=== PATIENT | male | born 1995 | race Caucasian/White ===

== ENCOUNTER 2017-12-07 14:19 | Observation (INO) | payer OTHER ==
[~2017-12-07 14:19] MED LIST: Dexamethasone 20 MG/5 ML VIAL ONE; Glycopyrrolate 0.2 MG/ML 5 ML SYRINGE ONE; ISOVUE-370 76%-LOCM 1 ML ONE; Ketorolac Tromethamine 30 MG/ML VIAL ONE; Lidocaine 1% PF 5 ML VIAL ONE; Ondansetron HCl/PF 4 MG/2 ML Vial ONE; PROPOFOL 200 MG/20 ML VIAL ONE; Succinylcholine Chloride 20 MG/ML 10 ml SYRINGE FS ONE
[2017-12-07 15:04] LABS: #Basophils 0.1 thou/uL (0.0-0.2); #Eosinphils 0.1 thou/uL (0.0-0.7); #Lymphocytes 3.3 thou/uL (1.20-3.40); #Monocytes 0.8 thou/uL (0.11-0.59); #Neutrophils 6.5 thou/uL (1.40-6.50); %Basophils 0.9 % (0.0-1.0); %Eosinophils 1.4 % (0.0-10.0); %Lymphocytes 30.1 % (28.0-48.0); %Monocytes 7.6 % (0.0-4.0); Hemoglobin 15.6 g/dL (14.0-18.0); Mean Corpuscular HGB CONC 33.3 g/dL (32.0-36.0); Mean Corpuscular Hemoglobin 27.6 pg (25.0-35.0); Mean Corpuscular Volume 82.8 fL (78.0-98.0); Mean Platelet Volume 8.6 fL (7.4-10.4); Platelet Count 271 thou/uL (130-400); Red Blood Cell (RBC) Count 5.67 mill/uL (4.00-5.20); White Blood Cell (WBC) Count 10.8 thou/uL (4.8-10.8)
[2017-12-07 15:20] LABS: ALT (SGPT) 16 U/L (8-55); AST (SGOT) 16 U/L (5-34); Albumin 4.9 g/dL (3.5-5.0); Alkaline Phosphatase 138 U/L (Less than 750); Anion Gap 14 mmol/L (10-20); BUN (Urea Nitrogen) 12 mg/dL (8.9-20.6); Bilirubin, Total 0.7 mg/dL (0.2-1.2); Calc. Creatinine Clearance 0 mL/min (70-130); Calcium 10.1 mg/dL (7.8-10.44); Carbon Dioxide 25 mmol/L (22-29); Chloride 106 mmol/L (98-107); Estimated GFR-MDRD 86; Globulin 3.3 g/dL (2.4-3.5); Glucose 74 mg/dL (70-105); Lipase 11 U/L (8-78); Potassium 3.8 mmol/L (3.5-5.1); Protein, Total 8.2 g/dL (6.0-8.3); Sodium 141 mmol/L (136-145)
--- NOTE | 2017-12-07 15:48 | CT ---
CT ABDOMEN AND PELVIS WITH IV CONTRAST: Date: 12/07/17 HISTORY: Right lower quadrant abdominal pain. FINDINGS: The lung bases are clear. The liver, spleen, pancreas, adrenal glands, and kidneys are normal. No minna cified gallstones are seen. The small bowel loops are not abnormally dilated. There is fluid-filled d istention of the distal appendix with surrounding inflammatory changes. The proximal appendix is air- filled. No lymphadenopathy is seen. IMPRESSION: Findings are consistent with distal/tip appendicitis. Results called over the telephone to ER physician, Dr. Johann Sheppard, at 1539 hours. CODE CR. POS: [place]
[2017-12-07] MEDS ORDERED: MEROPENEM 1 GM/50 ML 1 GM in Premix Bag 1 BAG IVPB ONE (16:00)
--- NOTE | 2017-12-07 17:44 | HP ---
DATE OF ADMISSION: 12/07/2017 HISTORY OF PRESENT ILLNESS: Mr. Daniels is a 22-year-old man who [facility] with insidious onset of severe periumbilical abdominal pain which started 2200 last night. The pain was associated with multiple episodes of nausea and diaphoresis. Pain soon set on the right lower quadrant and has persisted there since. Pain became unrelenting. As a result, the patient pr esented to Emergency Department. He denies any fevers or chills. The patient denies any change in h is bowel habits. PAST MEDICAL HISTORY: Pertinent for chronic anxiety disorder. PAST SURGICAL HISTORY: The patient denies any previous surgeries. FAMILY HISTORY: Patient denies any family history of diabetes mellitus, hypertension, heart disease or cancer. PREHOSPITALIZATION MEDICATION: Includes lamotrigine 100 mg p.o. at bedtime. ALLERGIES: Patient denies any known drug allergies. REVIEW OF SYSTEMS: A 10-point review of system is essentially unremarkable except for as stated in t he past medical history and chief complaint. PHYSICAL EXAMINATION: GENERAL: This reveals a 22-year-old normally developed man who is otherwise coherent and interactive and appears stated age. The patient is alert and oriented x3. He appears to be in no significant a cute distress at the time of my evaluation. VITAL SIGNS: Includes blood pressure 138/86, pulse 78, respiratory rate 16, temperature is 98.2 degr ees Fahrenheit, oxygen saturation 98% on room air. HEENT: Reveals normocephalic and atraumatic. Pupils are equal, round, reactive to light and accommo dation. Extraocular muscles are intact bilaterally. He has no sclerae icterus present. Oral mucosa is pink and moist. No lesions are noted. NECK: Supple. No palpable lymphadenopathy or thyromegaly present. HEART: Reveals regular rate and rhythm, no murmurs or gallops auscultated. LUNGS: Clear to auscultation bilaterally. Breathing is regular and unlabored. ABDOMEN: Soft and nondistended. He has right lower quadrant tenderness at McBurney's. Liver and sp alfonzo are nonpalpable below costal margin. The patient has a positive Rovsing sign. EXTREMITIES: Reveals 2+ radial and pedal pulses bilaterally. No ankle edema is present. NEUROLOGIC: Examination reveals no focal deficits present. LABORATORY DATA AND IMAGING DATA: Pertinent laboratory findings today includes CBC with 10,800 white blood cells, hemoglobin and hematocrit are 15.6 and 46.9 respectively. Platelet count is 271,000. Metabolic profile: Sodium 141, potassium 3.8, chloride is 106, bicarbonate is 25, BUN is 12, creatin ine is 1.09, glucose 74, total bilirubin 0.7, AST and ALT normal at 16 and 16 respectively. Serum li pase is normal at 11. I personally reviewed the CT scan of the abdomen and pelvis which is remarkabl e for distended appendix with thickening of the appendiceal tip as well as surrounding periappendicea l fat stranding. There is no pneumoperitoneum present. IMPRESSION: Acute appendicitis. PLAN: Laparoscopic appendectomy. Above findings and plan have been discussed with the patient who i ndicates understanding of the information given. I have advised the patient of the risks and benefit s of the proposed surgery. Risks include, but not limited to bleeding, infection, injury to bowel an d surrounding structures. This information I have provided to the patient at bedside and also at the request of the patient's communicator, I spoke with his mother on the telephone. She is en route to the hospital driving from out of town. The patient and his mother understand the information I have provided them today. The patient has gi brigid consent for this admission and surgical intervention.
[2017-12-07] MEDS ORDERED: Fentanyl 250 MCG/5 ML VIAL ONE (18:28)
[2017-12-07] MEDS ORDERED: Bupivacaine/Epinephrine 0.25% 30 ML VIAL ONE (20:51)
[2017-12-07] MEDS ORDERED: Ondansetron HCl/PF 4 MG/2 ML Vial IVP PRN (22:35)
[2017-12-07] MEDS ORDERED: Dextrose 50% Abboject 50 ML SYRINGE SLOW IVP PRN (22:35)
[2017-12-07] MEDS ORDERED: hydrALAZINE 20 MG/ML VIAL SLOW IVP PRN (22:35)
[2017-12-07] MEDS ORDERED: Promethazine HCl 25 MG/ML VIAL IM PRN (22:35)
[2017-12-07] MEDS ORDERED: Dextrose 5% in Water 1,000 ML IV PRN (22:35)
[2017-12-07] MEDS ORDERED: Fentanyl 100 MCG/2 ML VIAL ONE (23:05)
[2017-12-08] MEDS ORDERED: traMADol HCl 50 MG TAB PO PRN ×2 (00:23)
[2017-12-08] MEDS ORDERED: Acetaminophen 1,000 MG in Premix Bag 1 BAG IVPB SCH (00:30)
[2017-12-08] MEDS: Ibuprofen 800 MG TAB PO SCH ×2 (01:23→08:43)
[2017-12-08 01:35] VITALS: BMI 34.1
--- NOTE | 2017-12-08 01:58 | OP ---
DATE OF OPERATION: 12/07/2017 PREOPERATIVE DIAGNOSIS: Acute appendicitis. POSTOPERATIVE DIAGNOSIS: Acute appendicitis. OPERATION PERFORMED: Laparoscopic appendectomy. SURGEON: Wenceslao Solano D.O. ANESTHESIA: General endotracheal. ESTIMATED BLOOD LOSS: 10 mL. FLUIDS GIVEN: 700 mL of crystalloids. SPONGE AND INSTRUMENT COUNT: Certified as correct x2. COMPLICATIONS: None apparent at the time of operation. INDICATIONS FOR OPERATION: A 22-year-old man presented with insidious onset periumbilical abdominal pain, which since settled in the right lower quadrant. Clinical and radiographic examinati on was consistent with acute appendicitis for which patient was brought to the operating room for verna endectomy. Findings are consistent with inflamed retrocecal, but nonperforated appendix with periapp endiceal inflammation. DESCRIPTION OF OPERATION: Informed consent was obtained from the patient who was brought to the oper ating room and placed in supine position. Following general anesthesia, a Mistry catheter inserted an d placed bedside drain. Abdomen is sterilely prepped and draped in usual fashion. Skin below the um bilicus was infiltrated 0.25% Marcaine with epinephrine. A small curvilinear infraumbilical incision is made using an 11 scalpel. Umbilical stalk grasped with Lilian's and elevated. Veress needle was inserted through the incision and placed in the peritoneal cavity through which the abdomen was insu fflated with 3 liters of CO2 gas. Intraabdominal pressure noted at 2 mmHg. Following abdominal insu fflation, Veress needle was removed and a 5 mm trocar introduced using the Visiport under laparoscopy . Laparoscopy confirmed proper placement of the port, no injuries to underlying structures. An claire tional laparoscopy reveals right lower quadrant encased by omental adhesions. Under direct laparosco py, 5 mm suprapubic and a 12 mm left lower quadrant ports were placed after the overlying skin were i nfiltrated with 0.25% Marcaine with epinephrine and appropriate incisions made. The patient was plac ed in a Trendelenburg position, rotated to his left. I introduced Prestige grasper through the left lower quadrant port site using this to bluntly take down omental adhesions. We ran the small bowel f rom approximately 2 feet towards the terminal ileum and then finding no Meckel's diverticulum. Retro cecal appendix was noted, no evidence of perforation. There was significant amount of periappendicea l inflammatory tissue. I introduced Endo Joy forceps through the suprapubic port site grasping t he appendix which was elevated. I then used a LigaSure device to take down mesoappendix superiorly w ith good hemostasis. The appendix itself was divided at the appendicocecal junction between 2 Endolo ops. The specimen was delivered of the abdominal cavity using an EndoCatch. Operative site was insp ected for good hemostasis. Finding no other pathology, laparoscopy was terminated. Fascia of the le ft lower quadrant port was closed using 0 Vicryl suture and Endo closure device under laparoscopy. A bdomen was desufflated. All ports and instruments removed and accounted for. Skin incisions closed using 4-0 Monocryl suture in subcuticular fashion. Dermabond was applied over the incisional closure . The patient tolerated the operation without any apparent complication and was returned to recovery room in satisfactory condition.
[2017-12-08] MEDS ORDERED: Acetaminophen 500 MG TAB PO SCH (08:00)
[2017-12-08] MEDS ORDERED: Famotidine 20 MG TAB PO SCH (09:00)
[2017-12-08] MEDS ORDERED: Famotidine/PF 20 mg/2ml Vial SLOW IVP SCH (09:00)
[2017-12-08 12:19] VITALS: BP 114/72; TEMP 97.8
--- NOTE | 2017-12-09 00:13 | DIS-2 ---
DATE OF ADMISSION: 12/07/2017 DATE OF DISCHARGE: 12/08/2017 RESIDENT: Melodie Hooper MD ADMITTING ATTENDING: Wenceslao Solano DO DISCHARGE ATTENDING: Dima Wu MD CONSULTS: None. PROCEDURES: 1. Abdomen and pelvis CT significant with distal/tip appendicitis. 2. Laparoscopic appendectomy with findings that were consistent with inflamed retrocecal, but nonperforated appendix with periappendiceal inflammation. PRIMARY DIAGNOSIS: Acute appendicitis. SECONDARY DIAGNOSIS: Chronic anxiety disorder. DISCHARGE MEDICATIONS: 1. Lamotrigine 100 mg p.o. at bedtime. 2. Acetaminophen 1000 mg p.o. every 6 hours for pain. 3. Ibuprofen 800 mg p.o. every 8 hours for 2 weeks. 4. Tramadol 50 mg p.o. every 6 hours p.r.n. for pain. DISCONTINUED MEDICATIONS: None. HOSPITAL COURSE: The patient is a 22-year-old male with no significant past medical history who presented to the Emergency Department with insidious onset of severe periumbilical abdominal pain that started around 2200 the day prior to presentation. The patient reported multiple episodes of associated nausea and diaphoresis as well. Upon evaluation in the Emergency Department, patient's vitals were noted to be within normal limits and his white blood count was also within normal limits at 10.8. His complete metabolic panel was also within normal limits. However, an abdominal pelvic CT was also obtained and was significant for acute appendicitis. The patient was then given 1 gram of meropenem and a bolus of normal saline and general surgery was consulted to come and evaluate the patient in the Emergency Department. After his evaluation, the patient was then taken to the OR and underwent an urgent laparoscopic appendectomy. The patient was monitored overnight and by the following morning, was tolerating p.o. and stated his pain was well- controlled with PO pain meds. He was therefore cleared for discharge home in stable condition. DISCHARGE INSTRUCTIONS: 1. Location: Home. 2. Diet: Regular diet: No restrictions. 3. Activity: As tolerated. No restrictions. 4. Followup: The patient was instructed to follow up with the Trauma Team, Dr. Wenceslao Solano within 14 days of discharge as well as his primary care provider within 7 days of discharge. DAWIT
== END 2017-12-08 14:00 | disposition home or self-care (01) ==
LOC: ERS 14:19 → SDC 17:20 → ERS 17:28 → SURG B 23:51
PROVIDERS: ADMIT Surgery; ATTEND Surgery
PROC: 0DTJ4ZZ Resection of Appendix, Percutaneous Endoscopic Approach (ICD-10-PCS; principal; 2017-12-07)
DX: K35.80 Unspecified acute appendicitis (principal); F41.9 Anxiety disorder, unspecified
CPT/HCPCS: 36415; 74177; 80053; 83690; 85025; 88304; 90471; 90686; 96365; 96375; G0008; G0378; J0131; J1100; J1885; J2001; J2185; J2405; J2704; J3010